=== PATIENT | female | born 1995 | race Two or more races ===

== ENCOUNTER 2020-06-16 15:31 | Emergency (ER) | payer MEDICAID, OTHER ==
[~2020-06-16] VITALS: Ht 147.3 cm; Wt 44.5 kg
[2020-06-16 16:20] LABS: Basophils # (auto) 0 10 ^3/uL (0-0.2); Eosinophils # (auto) 0.1 10 ^3/uL (0-0.8); Hemoglobin 11.7 g/dL (12.2-16.2); Neutrophils # (auto) 3.7 10 ^3/uL (1.6-8.6); Nucleated Red Blood Cells % 0.2 %
[2020-06-16 16:22] LABS: Basophils % (auto) 0.5 % (0.0-2.0); Eosinophils % (auto) 1.3 % (0.0-7.0); Hematocrit 36.1 % (36.0-46.0); Lymphocytes # (auto) 3.3 10 ^3/uL (0.4-5.4); Mean Corpuscular Hemoglobin 25.7 pg (28.0-32.0); Mean Corpuscular Hgb Conc. 32.5 g/dL (32.0-36.0); Mean Corpuscular Volume 79.1 fL (80.0-100.0); Monocytes # (auto) 0.5 10 ^3/uL (0-1.3); Monocytes % (auto) 6.3 % (0.0-12.0); Neutrophils % (auto) 48.9 % (37.0-80.0); Platelet Count (auto) 422 10^3/uL (140-450); Red Blood Cells 4.56 10^6/uL (4.0-5.20); Red Cell Distribution Width 15.8 % (11.8-14.3); White Blood Cell 7.6 10^3/uL (4.4-10.8)
[2020-06-16 16:26] LABS: Albumin 2.8 g/dL (3.4-5.0); Calcium 8.2 mg/dL (8.5-10.1); Magnesium 2.4 mg/dL (1.6-2.6); Potassium 3.9 mmol/L (3.5-5.1)
[2020-06-16 16:29] LABS: BUN/Creatinine Ratio 25.4; Bilirubin, Total 0.6 mg/dL (0.2-1.0); Total Protein 7.4 g/dL (6.4-8.2)
[2020-06-16] MEDS ORDERED: SODIUM CHLORIDE 0.9% 1,000 ML IV ONE (17:45)
[2020-06-16 18:00] VITALS: BP 92/50
== END 2020-06-16 18:18 | disposition left against medical advice (07) ==
LOC: EDBD 15:31 → ER 15:31
DX: R56.9 Unspecified convulsions (principal); F19.239 Other psychoactive substance dependence with withdrawal, unspecified; M54.2 Cervicalgia; M54.9 Dorsalgia, unspecified
CPT/HCPCS: 36415; 70450; 80053; 83735; 84702; 85025; 96360; 99284; J7030